=== PATIENT | female | born 1980 | race Caucasian/White ===

== ENCOUNTER 2023-07-19 20:10 | Emergency (ER) | payer SELFPAY ==
[~2023-07-19] VITALS: Ht 157.5 cm; Wt 56.0 kg
[2023-07-19 20:12] VITALS: BP 118/72; PULSE 89; RESP 20; O2SAT 98
[2023-07-19 20:51] VITALS: TEMP 98.1
[2023-07-19] MEDS: ACETAMINOPHEN 500MG TABLET PO ONE (20:51)
== END 2023-07-19 20:56 | disposition home or self-care (01) ==
LOC: ER 20:10
DX: F41.9 Anxiety disorder, unspecified (principal)
CPT/HCPCS: 99283